=== PATIENT | male | born 1985 | race Caucasian/White ===

== ENCOUNTER 2022-08-28 06:15 | Inpatient (IN) | payer OTHER ==
[~2022-08-28] VITALS: Ht 182.9 cm; Wt 115.5 kg
[2022-08-28] VITALS (21 sets, daily range): BP systolic 100–155; BP diastolic 57–88
[2022-08-28 06:33] LABS: BASOPHILS ABSOLUTE AUTO 0.05 K/mm3 (0.00-0.23); BASOPHILS PERCENT AUTO 1 % (0-2); EOSINOPHILS ABSOLUTE AUTO 0.03 K/mm3 (0.00-0.68); EOSINOPHILS PERCENT AUTO 0 % (0-6); Hematocrit 50.7 % (37.0-53.0); Hemoglobin 15.7 g/dL (13.5-17.5); IMMATURE GRAN ABSOLUTE AUTO 0.25 K/mm3 (0.00-0.10); IMMATURE GRAN PERCENT AUTO 2 % (0-1); LYMPHOCYTES ABSOLUTE AUTO 3.28 K/mm3 (0.84-5.20); LYMPHOCYTES PERCENT AUTO 32 % (21-46); MONOCYTES ABSOLUTE AUTO 0.51 K/mm3 (0.16-1.47); MONOCYTES PERCENT AUTO 5 % (4-13); Mean Corpuscular HGB 31.2 pg (26.0-34.0); Mean Corpuscular Volume 101 fL (80-100); Mean Platelet Volume 10.5 fL (9.1-12.4); NEUTROPHILS ABSOLUTE AUTO 6.16 K/mm3 (1.96-9.15); NEUTROPHILS PERCENT AUTO 60 % (41-73); Platelet Count 367 K/mm3 (150-400); RDW Coefficient Variation 12.6 % (11.7-14.2); RDW Standard Deviation 47.4 fL (35.1-46.3); Red Blood Cell Count 5.03 M/mm3 (4.30-5.90); White Blood Cell Count 10.28 K/mm3 (4.00-11.30)
[2022-08-28 06:35] LABS: Base Excess Venous -21.1 mmol/L; PCO2 Venous 93.5 mmHg (38-42)
[2022-08-28 06:36] LABS: pH Blood Venous <6.80 (7.34-7.37)
[2022-08-28 07:04] LABS: Ethanol (Alcohol), Blood, Med <3 mg/dL; Magnesium, Blood 4.3 mg/dL (1.6-2.4)
[2022-08-28 07:07] LABS: Albumin, Blood 3.9 g/dL (3.4-5.0); Albumin/Globulin Ratio 1.1 (0.8-1.8); Bilirubin, Total 0.4 mg/dL (0.1-1.0); Bun/Creatinine Ratio 11.3 (12.0-20.0); Calcium, Blood 9.7 mg/dL (8.5-10.1); Creatinine, Blood 1.41 mg/dL (0.60-1.20); Globulin, Blood 3.6 g/dL (2.2-4.0); Potassium, Blood 4.8 mmol/L (3.5-5.5); Total Protein, Blood 7.5 g/dL (6.4-8.2)
[2022-08-28 07:22] LABS: U Amphetamine Screen Not Detected; U Barbituate Screen Not Detected; U Benzodiazapine Screen Not Detected; U Buprenorphine Screen Not Detected; U Cannabinoids Screen Not Detected; U Cocaine Screen Not Detected; U Methadone Screen Not Detected; U Methamphetamine Screen Not Detected; U Opiates Screen Not Detected; U Oxycodone Screen Not Detected; U Phencyclidine Screen Not Detected; U Propoxyphene Screen Not Detected
[2022-08-28 09:11] LABS: PCO2 Arterial 46.7 mmHg (35-45); PO2 Arterial 68.5 mmHg (80-100); pH Blood Arterial 7.27 (7.35-7.45)
--- NOTE | 2022-08-28 12:55 | NUR ---
PT ADMITTED TO ICU AT 0940 FROM ER FOR RESP ARREST. PT ARRIVED ON [facility] VENT W RN/RT ESCORT. UPON ARRIVAL PT THRASHING IN BED AND BUCKING VENT, DID NOT OPEN EYES OR FOLLOW COMMANDS. PROPOFOL INITIALLY AT 50MCG AND TITRATED UP TEMP. TO 70MCG. DR GALICIA AT BEDSIDE. ATIVAN AND FENT ORDERED PRN, ATIVAN 2MG GIVEN, FOLLOWED BY FENT 50MCG. PROPOFOL THEN TITRATED DOWN BETWEEN 35-45MCG. PT WILL OCC AWAKEN, PULL ON RESTRAINTS, GAG/COUGH (DISCONNECTING SELF FROM ETT OCC), AND STACK ON VENT. FENT AND ATIVAN NEEDED PRN FOR THESE REASONS. PT DID NOD HEAD TO DIRECTIONS ONCE AND OPENED EYES SPONT X2, BUT UNABLE TO FOLLOW OTHER COMMANDS, NOT REDIRECTABLE. LUNGS INITIALLY CLEAR, AND REMAIN CLEAR. SATS >90% ON 80% FIO2. VENT: AC/VC 26/400/80%/5. ETT 27 AT LIP, RETAPED BY RT AFTER ADMIT. BITE/OPEN AREA NOTED TO BOTTOM LIP; SMALL OOZ. 1L NS BOLUS GIVEN. PT'S AT BEDSIDE, AND WAS UPDATED BY DR GALICIA. POWERGLIDE PLACED TO AMINA.
[2022-08-28 12:56] LABS: Bun/Creatinine Ratio 12.1 (12.0-20.0); Creatinine, Blood 1.32 mg/dL (0.60-1.20); Potassium, Blood 4.5 mmol/L (3.5-5.5)
[2022-08-28 12:57] LABS: Calcium, Blood 7.6 mg/dL (8.5-10.1)
[2022-08-28 16:29] LABS: Bun/Creatinine Ratio 12.5 (12.0-20.0); Calcium, Blood 7.8 mg/dL (8.5-10.1); Creatinine, Blood 1.28 mg/dL (0.60-1.20)
[2022-08-28] MEDS ORDERED: Deltasone 10 mg10 MG (16:42)
[2022-08-28] MEDS ORDERED: ALBU90OI INH (16:43)
[2022-08-28] MEDS ORDERED: ATROVENT HFA12.9 GM INH (16:44)
[2022-08-28] MEDS ORDERED: MIRTAZAPINE7.5 M1 PO (16:45)
[2022-08-28] MEDS ORDERED: FLUT1DIS2 INH (16:45)
[2022-08-28] MEDS ORDERED: MONT10T PO (16:45)
[2022-08-28] MEDS ORDERED: OMEP20ER PO (16:46)
--- NOTE | 2022-08-28 18:12 | NUR ---
FIO2 AT 75%, PEEP WAS INCREASED FROM 5 TO [address] GALICIA. PROPOFOL AT 65MCG. PT AWAKENS EVERY 1 TO 2 HOURS, THRASHING, COUGHING/GAGING, STACKING ON VENT, PULLING ON RESTRAINTS, AND HAS REQUIRED FENT/ATIVAN FREQUENTLY T/O SHIFT FOR THESE REASONS. PT'S CAME BY AT END OF SHIFT AND WAS UPDATED BY DR GALICIA.
--- NOTE | 2022-08-28 19:06 | NUR ---
DR GALICIA INCREASED PEEP TO 12, AND DECREASED FIO2 TO 70%. BEDSIDE REPORT GIVEN TO WALESKA AN.
--- NOTE | 2022-08-28 19:48 | NUR ---
ASSUMED CARE PT IS INTUBATED AND SEDATED. VENT SETTINGS AT 20/400/12/70%; SPO2 >92%. MAP >65; ST 100'S. PROPOFOL @ 65 MCG/KG/MIN. PT IS STILL ABLE TO OPEN EYES, BUT DOES NOT APPEAR TO FOLLOW COMMANDS. WILL PULL AT RESTRAINTS AND ATTEMPT TO OPEN EYES WHEN STATING PT'S NAME. PULLIAM CATHETER PATENT AND DRAINING TO GRAVITY.
[2022-08-28 21:09] LABS: Bun/Creatinine Ratio 13.3 (12.0-20.0); Calcium, Blood 7.9 mg/dL (8.5-10.1); Creatinine, Blood 1.28 mg/dL (0.60-1.20); Potassium, Blood 4.8 mmol/L (3.5-5.5)
--- NOTE | 2022-08-28 21:58 | NUR ---
UPDATE NO IGINITION SOURCES FOUND ON PT. WAS NOT ABLE TO ASK PT D/T PT BEING INTUBATED AND SEDATED.
[2022-08-29] VITALS (17 sets, daily range): BP systolic 112–155; BP diastolic 60–85
[2022-08-29 03:28] LABS: BASOPHILS ABSOLUTE AUTO 0.02 K/mm3 (0.00-0.23); BASOPHILS PERCENT AUTO 0 % (0-2); EOSINOPHILS PERCENT AUTO 0 % (0-6); Hematocrit 39.1 % (37.0-53.0); Hemoglobin 13.2 g/dL (13.5-17.5); IMMATURE GRAN ABSOLUTE AUTO 0.11 K/mm3 (0.00-0.10); IMMATURE GRAN PERCENT AUTO 1 % (0-1); LYMPHOCYTES ABSOLUTE AUTO 0.49 K/mm3 (0.84-5.20); LYMPHOCYTES PERCENT AUTO 3 % (21-46); MONOCYTES ABSOLUTE AUTO 0.49 K/mm3 (0.16-1.47); MONOCYTES PERCENT AUTO 3 % (4-13); Mean Corpuscular HGB 31.7 pg (26.0-34.0); Mean Corpuscular HGB Conc 33.8 g/dL (31.5-36.5); Mean Platelet Volume 9.8 fL (9.1-12.4); NEUTROPHILS ABSOLUTE AUTO 16.42 K/mm3 (1.96-9.15); NEUTROPHILS PERCENT AUTO 94 % (41-73); Platelet Count 249 K/mm3 (150-400); RDW Coefficient Variation 13.2 % (11.7-14.2); RDW Standard Deviation 45.7 fL (35.1-46.3); Red Blood Cell Count 4.17 M/mm3 (4.30-5.90); White Blood Cell Count 17.53 K/mm3 (4.00-11.30)
[2022-08-29 03:37] LABS: Mean Corpuscular Volume 94 fL (80-100)
--- NOTE | 2022-08-29 03:53 | NUR ---
UPDATE AROUND 0250~ PT DESATTED DOWN TO 85% AND BECAME DESYNCHRONOUS W/ VENT AND TACHYPNEIC (TIP PRINTER IN ROOM); AUSCULTATED WHEEZES BILATERALLY AND ROSS RT CALLED. RT GAVE DUONEB/ALBUTEROL AND DR. GALICIA WAS CALLED W/ ORDERS FOR FENTANYL DEPENDENCY CASE MANAGER AND ADDITIONAL ALBUTEROL DOSE. PT IS NOW TOLERATING VENT W/ LUNGS CLEAR BILATERALLY.
[2022-08-29 03:55] LABS: Albumin, Blood 3.3 g/dL (3.4-5.0); Albumin/Globulin Ratio 1.1 (0.8-1.8); Bilirubin, Total 0.4 mg/dL (0.1-1.0); Bun/Creatinine Ratio 14.7 (12.0-20.0); Calcium, Blood 8.2 mg/dL (8.5-10.1); Creatinine, Blood 1.16 mg/dL (0.60-1.20); Globulin, Blood 2.9 g/dL (2.2-4.0); Magnesium, Blood 2.5 mg/dL (1.6-2.4); Phosphorus, Blood 3.6 mg/dL (2.5-4.9); Potassium, Blood 5.1 mmol/L (3.5-5.5); Total Protein, Blood 6.2 g/dL (6.4-8.2)
[2022-08-29 04:10] LABS: Base Excess Venous -2.3 mmol/L; Bicarbonate Venous 22.4 mmol/L (24.0-30.0); PCO2 Venous 43.8 mmHg (38-42); pH Blood Venous 7.34 (7.34-7.37)
--- NOTE | 2022-08-29 05:35 | NUR ---
SHIFT SUMMARY PT'S SETTINGS ARE NOW AT 20/400/12/75%; SPO2 >92%. MAP >65; HR 100'S. PT SEDATED W/ PROPOFOL AND FENTANYL (SEE FLOWSHEET); PT HAS BEEN RESTING QUIETLY SINCE FENTANYL GTT INITIATION. PULLIAM CATHETER PATENT AND DRAINING TO GRAVITY. NO NEW EVENTS SINCE LAST PT NOTE.
--- NOTE | 2022-08-29 07:16 | NUR ---
ASSUMED CARE I ASSUMED CARE OF THIS PATIENT AT 0700. PATIENT IS LYING IN BED INTUBATED AND SEDATED. VENT SETTINGS 20/400/12/60% WITH TV 400'S RR 20-21 AND SPO2 97-98%. OGT IN PLACE TO LOW INTERMITTENT SUCTION. MONITOR SHOWS SINUS RHYTHM WITH RATE 90'S. BP STABLE WITH MAPS GREATER THAN 65 AND SBP GREATER THAN 120. PULLIAM CATHETER PATENT AND DRAINING YELLOW CLEAR URINE TO GRAVITY. RECTAL TEMP PROBE IN PLACE WITH CORE TEMP 98.1F AT THIS TIME. NO FAMILY OR VISITORS AT BEDSIDE AND NO BELONGINGS IN ROOM. PROPOFOL @ 65 MCG/KG/MIN, FENTANYL GTT @ 25 MCG/HR, NS @ 75ML/HR AND NS TKO INF. BEDSIDE REPORT RECEIVED FROM JUVE GALEANO.
--- NOTE | 2022-08-29 11:21 | NUR ---
"Spriritual Care | Nurse request Pt. is both intubated and agitated when I arrive. This retail manager in training is directed to the highly emotional Mother of the Pt. Facilitate a life review and establish some rapport with Mother, Pts. Spouse, and Pts. father. After the staff clears out of the room i took the mother to bedside and prayed for Pt. and Mother. Mother displayed evidence of rweduced anxiety and verbalized that she could not stay. Before departing the Mother verbalized gratitude for the spiritual care visit. I walked out of ICU with family. Pts. spouse welcomed me to remain available to the family."
--- NOTE | 2022-08-29 19:32 | NUR ---
ASSUMED CARE PATIENT REMAINS INTUBATED AND SEDATED. PROPOFOL @ 50MCG/KG/MIN, PRECEDEX @ 0.5MCG/KG/HR, NS @ 75ML/HR. VHP STARTED @ GR OF 15ML/HR. PULLIAM DRAINED 800ML PENG URINE WITH SEDIMENT AFTER REQUIRING FLUSHING. VENT SETTINGS 16/500/8/45% FIO2 WITH SPO2 HIGH 90'S-100%. FOLLOWING COMMANDS TO REEL ASSEMBLER HANDS AND LIFT HEAD. AFEBRILE CORE TEMP. LUNG SOUNDS REMAIN CLEAR WITH MINIMAL ETT SECRETIONS. NO BM THIS SHIFT AND HYPOACTIVE BT. NO OTHER CHANGES DURING SHIFT.
--- NOTE | 2022-08-29 20:00 | NUR ---
ASSUMED CARE OF PT AT 1900. REPORT RECEIVED AT BEDSIDE. PT PRESENTS IN BED. INTUBATED. MAINTAINS O2 SATURATION > 90 PERCENT. PT DOES AROUSE TO PAINFUL AND TACTILE STIMULI. PROPOFOL ON AT 55 MCG'S/KG/MIN. PRECEDEX AT 0.5 MCG'S/KG/HOUR. PT DEMONSTRATING GOOD TOLERANCE TO VENT. WILL REVIEW CHART AND PLAN OF CARE FOR THIS PT.
[2022-08-29 22:09] LABS: HEMOGLOBIN A1C 5.8 % (4.8-5.6)
[2022-08-30] VITALS (27 sets, daily range): BP systolic 132–189; BP diastolic 77–132
--- NOTE | 2022-08-30 | NUR ---
HAVE BROUGHT PROPOFOL DOWN TO 45 MCG'S/KG/MIN. PT MUCH MORE AROUSABLE WITH THIS RATE. HAS ADEQUATE URINE OUTPUT FROM PULLIAM. NO S/S BLOCKAGE.
[2022-08-30 04:43] LABS: BASOPHILS ABSOLUTE AUTO 0.01 K/mm3 (0.00-0.23); BASOPHILS PERCENT AUTO 0 % (0-2); EOSINOPHILS PERCENT AUTO 0 % (0-6); Hematocrit 37.3 % (37.0-53.0); Hemoglobin 12.4 g/dL (13.5-17.5); IMMATURE GRAN ABSOLUTE AUTO 0.07 K/mm3 (0.00-0.10); IMMATURE GRAN PERCENT AUTO 0 % (0-1); LYMPHOCYTES ABSOLUTE AUTO 0.33 K/mm3 (0.84-5.20); LYMPHOCYTES PERCENT AUTO 2 % (21-46); MONOCYTES PERCENT AUTO 5 % (4-13); Mean Corpuscular HGB 31.5 pg (26.0-34.0); Mean Corpuscular HGB Conc 33.2 g/dL (31.5-36.5); Mean Corpuscular Volume 95 fL (80-100); NEUTROPHILS ABSOLUTE AUTO 16.73 K/mm3 (1.96-9.15); NEUTROPHILS PERCENT AUTO 93 % (41-73); NRBC ABSOLUTE 0.02 K/mm3 (0.00-0.02); NRBC Auto 0.1 /100 WBC (0.0-0.2); Platelet Count 246 K/mm3 (150-400); RDW Coefficient Variation 13.2 % (11.7-14.2); RDW Standard Deviation 46.4 fL (35.1-46.3); Red Blood Cell Count 3.94 M/mm3 (4.30-5.90); White Blood Cell Count 17.94 K/mm3 (4.00-11.30)
[2022-08-30 05:00] LABS: Bun/Creatinine Ratio 17.7 (12.0-20.0); Calcium, Blood 8.6 mg/dL (8.5-10.1); Creatinine, Blood 0.91 mg/dL (0.60-1.20); Magnesium, Blood 2.3 mg/dL (1.6-2.4); Phosphorus, Blood 1.6 mg/dL (2.5-4.9); Potassium, Blood 4.8 mmol/L (3.5-5.5)
--- NOTE | 2022-08-30 06:30 | NUR ---
HAVE STOPPED TUBE FEEDING AT 0500 THIS AM PER MD ORDERS. DR ARREAGA GIVE VERBAL ORDER TO EXTUBATE PT. HAVE BROUGHT SEDATION WITH PROPOFOL TO OFF. PT ABLE TO AWAKEN AND FOLLOW COMMANDS. ORION, RT IN ROOM SUCCESSFULLY EXTUBATES PT AFTER ASCERTAINING LEAK PER LEAK TEST. HAVE LEFT PRECEDEX DRIP AT 0.5 MCG'S. WILL CONTINUE TO MONITOR PT, AND WILL REPORT OFF TO ONCOMING RN.
--- NOTE | 2022-08-30 08:30 | NUR ---
INITIAL ASSESSMENT PATIENT EXTUBATED EARLY THIS AM BEFORE THIS RN CAME ON SHIFT. PATIENT ORIENTED TO SELF AND FAMILY. PATIENT CONTINUES TO NEED REMINDED OF EVENT AND PLACE. PATIENT ANXIOUS AND IRRITABLE AT TIMES. PATIENT TEMP 99.8 DEGREES FAHRENHEIT. PATIENT SATTING 90% AND GREATER ON 4 L NC. OCCASIONAL COUGH NOTED. LUNGS CLEAR IN UPPER LOBES AND DIM IN LOWER LOBES. PATIENT IN SR TO ST, HR 90S TO LOW 100S. SBP IN THE 140S. ABD MODERATELY DISTENDED. PULLIAM DRAINING YELLOW COLORED URINE. ABRASION NOTED TO BOTTOM LIP. NS INFUSING AT 75 MLS/ HOUR. PRECEDEX PLACED ON SB. BED LOW, CALL LIGHT IN REACH. WILL CONTINUE TO MONITOR PATIENT FREQUENTLY THROUGHOUT SHIFT.
--- NOTE | 2022-08-30 09:00 | NUR ---
IGNITION RISK ASSESSED. PATIENT STATES HE UNDERSTAND RISK OF FIRE IN HOSPITAL AND WILL NOT ATTEMPT TO SMOKE IN HOSPITAL ROOM.
--- NOTE | 2022-08-30 12:00 | NUR ---
PATIENT HAS TEMP FO 100.0 DEGREES FAHRENHEIT. HR IN THE LOW 100S. SBP IN THE 140S. MENTATION IMPROVED FROM THIS AM. PATIENT ALERT AND ORIENTED X 4. PRECEDEX HAS REMAINED OFF SINCE TURNED OFF THIS AM. PATIENT PASSED SWALLOW EVAL THIS AM AND IS TOLERATING FOOD WELL.
--- NOTE | 2022-08-30 15:36 | NUR ---
SHIFT SUMMARY PATIENT ON LOW DOSE PRECEDEX THIS AM AFTER EXTUBATED. PATIENT CONFUSED WHEN FIRST STARTED SHIFT BUT SINCE PRECEDEX PLACED ON SB THIS AM PATIENT HAS BECOME ALERT AND ORIENTED X 4. PATIENT HAS BEEN COOPERATIVE BUT DOES BECOME ANXIOUS AND IRRITABLE AT TIMES. PATIENT RECEIVED PRN FENTANYL TWICE THIS SHIFT FOR COMPLAINTS OF CHEST PAIN FROM CPR AND THROAT PAIN. PATIENT HAD CORE TMAX OF 100.0 DEGREES FAHRENHEIT THIS SHIFT. PATIENT HAS REMAINED SATTING 90% AND GREATER ON 4 L NC. PATIENT HAS OCCASIONAL, STRONG COUGH. LUNGS REMAINED CLEAR, LOWER LOBES SLIGHTLY DIMINISHED. PATIENT HAS REMAINED SR TO ST, HR 90S TO LOW 100S. SBP 140S TO 160S. PATIENT INCREASED TO REGULAR DIET THIS SHIFT AND HAS BEEN TOLERATING WELL. NO BM THIS SHIFT. ADEQUATE URINE OUTPUT THIS SHIFT. PULLIAM REMOVED THIS SHIFT AND PATIENT HAS SINCE VOIDED. NO CHANGES TO SKIN NOTED. NS DC'D. PRECEDEX DC'D. ASA AND OTHER FAMILY HAS BEEN IN MOST OF THE DAY. PATIENT WILL BE TRANSFERRING TO PCU SHORTLY.
--- NOTE | 2022-08-30 15:45 | NUR ---
PATIENT SUCCESSFULLY TRANSFERRED TO PCU, ROOM 05. FOLLOWED AND HAS ALL PATIENT BELONGINGS.
--- NOTE | 2022-08-30 15:50 | NUR ---
TRANSFER: Pt arrived to PCU in wheelchair on 4L O2 NC. He is A/O x 4, GARCIA. SO at bedside.
--- NOTE | 2022-08-30 18:20 | NUR ---
SHIFT SUMMARY: Pt A/O x 4 on 4L NC. He reports chest pain from CPR which he received PRN fentanyl with good effect. SO at bedside and supportive.
--- NOTE | 2022-08-30 21:36 | NUR ---
ASSUMPTION OF CARE: PATIENT IS ALERT AND ORIENTED, DIFFICULTY RECALLING SOME EVENTS, HOWERVER, AT BEDSIDE WITH GREAT KNOWLEDGE OF EVENTS. PATIENT IS PLEASANT COOPERATIVE WITH CARE TOUR SALES REPRESENTATIVE DC'D MEDS FOR PAIN AND ANXIETY, CALL PLACED TO PROVIDER, AWAITING CALL BACK, PATIENT HAS BEEN PAINFUL MUSCLE SKELETAL CPR RELATED CHEST PAIN, NO CHANGE FROM PREVIOUS. PATIENT IS CURRENLTY ON 6-6.5L VIA NC SPO2 >89%, WILL CONTINEU TO MONITOR. PATIENT IS SLIGHTLY HYPERTENSIVE, 160'S SYS, HOWEVER, WAS PAINFUL ON START OF VITALS. PATIENT EDUCATED, ON CURRENT ILNESS, MEDICATIONS, ANTICOAGULATION. OF CONCERN PATIENT IS MILDLY ALMOST FEBRILE AT 99.1, AND ST AT 111. WILL CONTINUE TO MONITOR, PATIENT IS RECIEVING IV ABX AND ORAL INTAKE IS WELL DESPITE EXTUBATION THIS AM. NO CONCERNS FROM THIS RN AT THIS TIME, PATIENT VOIDED AT BEGINNING OF SHIFT WILL CONTINUE TO MONITOR HE HAD A PULLIAM PREVIOUSLY.
[2022-08-31] VITALS (7 sets, daily range): BP systolic 128–160; BP diastolic 75–97
--- NOTE | 2022-08-31 04:00 | NUR ---
EOS: PATIENT HAS BEEN SLEEPING WELL THOUGH THE NIGHT, PAIN CONTROLLED WELL WITH OXY 5 AND TYLENOL, RECOMMEND STAGGERING, HEART RATE NOW SINUS RHYTHM 80-90'S VERSUS 100'S STILL ON 6L MOST LIKELY WILL BE ABLE TO WEANED DOWN DURING THE DAY HE HAS OBVIOUS SIGNS OF SLEEP APNEA, WILL CONTINUE TO MONITOR, AM LABS SENT, STILL SLIGHTLY HYPERTENSIVE SYS 160. PATIENT IS MILDLY CLAMMY DENIES CHEST APIN PRESSURE OR INCREASED WOB, WILL MONITOR UNTIL SHIFT CHANGE.
[2022-08-31 04:20] LABS: Calcium, Blood 8.4 mg/dL (8.5-10.1); Creatinine, Blood 0.96 mg/dL (0.60-1.20); Magnesium, Blood 2.2 mg/dL (1.6-2.4); Phosphorus, Blood 4.5 mg/dL (2.5-4.9); Potassium, Blood 4.3 mmol/L (3.5-5.5)
--- NOTE | 2022-08-31 17:50 | NUR ---
TRANSFER NOTE/SHIFT SUMMARY PT RECEIVED FROM PCU, REPORT FROM JUVE WILLIAMSON. PT ORIENTED TO THE ROOM. IS AT THE BS. CALL LIGHT WITHIN REACH, BED IN THE LOWEST POSITION. FIRE PROTOCOLS AND PROCEDURES DISCUSSED WITH THE PT AND FAMILY. ALL VERBALIZED UNDERSTANDING.
--- NOTE | 2022-08-31 18:38 | NUR ---
Shift Summary Pt alert, oriented X4; calm and cooperative with care. Pt resting in bed, up sba in room. Pt reports chest pain, medicated per orders. Pt denies sob, nauses, dizziness and numb/tingling. Tele sinus 80-90's, bp stable. Spo2 >90% t/o shift, pt on 6l o2 via nc this am, titrated down to 3l o2 via nc. Other vss. No other acute changes noted. Pt transfered to [place] [id number] this evening. Pt and family educated on ignition sources and risk of injury while wearing oxygen, pt denies having ignition sources at this time. Pt and family verbalize understanding.
--- NOTE | 2022-09-01 00:11 | NUR ---
PATIENT AND BOTH CONCERNED ABOUT MISSING THE CT THAT HAD BEEN ORDERED FOR HIS UPCOMING NASAL POLYPECTOMY. HE WAS SCHEDULED TO HAVE IT COMPLETED HERE ON THE DAY HE CAME IN THROUGH THE ER. HIS SURGERY IS SCHEDULED FOR THE September AT [facility] IN [place]. HOWEVER ARRANGEMENTS HAD BEEN MADE FOR DEBORAH TO HAVE THE CT HERE AT [facility].
--- NOTE | 2022-09-01 04:50 | NUR ---
PATIENT SLEPT WELL OVERNIGHT. COMPLAINTS OF LOWER STERNAL PAIN MANAGED WELL WITH PERCOCET. PATIENT IS ALERT AND ORIENTED AND CALLING APPROPRIATELY FOR ASSIST WHEN NEEDED. SPOUSE HAS BEEN BY HIS SIDE THROUGHOUT THE NIGHT DEBORAH AND WERE CONCERNED ABOUT MISSING HIS CT SCAN FOR HIS UPCOMING NASAL POLYPECTOMY SURGERY. ASSURED PATIENT THAT SINCE IT WAS ORDERED THROUGH [facility] FOR THE DAY HE CAME THROUGH THE ER, HE COULD LIKELY HAVE IT COMPLETED WHILE HE IS HERE IN THE HOSPITAAL.
[2022-09-01 05:50] VITALS: BP 135/85
[2022-09-01 06:19] LABS: BASOPHILS ABSOLUTE AUTO 0.02 K/mm3 (0.00-0.23); BASOPHILS PERCENT AUTO 0 % (0-2); EOSINOPHILS ABSOLUTE AUTO 0.02 K/mm3 (0.00-0.68); EOSINOPHILS PERCENT AUTO 0 % (0-6); Hemoglobin 14.5 g/dL (13.5-17.5); IMMATURE GRAN ABSOLUTE AUTO 0.12 K/mm3 (0.00-0.10); IMMATURE GRAN PERCENT AUTO 1 % (0-1); LYMPHOCYTES ABSOLUTE AUTO 1.07 K/mm3 (0.84-5.20); LYMPHOCYTES PERCENT AUTO 8 % (21-46); MONOCYTES ABSOLUTE AUTO 1.07 K/mm3 (0.16-1.47); MONOCYTES PERCENT AUTO 8 % (4-13); Mean Corpuscular HGB 31.1 pg (26.0-34.0); Mean Corpuscular HGB Conc 33.7 g/dL (31.5-36.5); Mean Corpuscular Volume 92 fL (80-100); Mean Platelet Volume 9.9 fL (9.1-12.4); NEUTROPHILS ABSOLUTE AUTO 11.85 K/mm3 (1.96-9.15); NEUTROPHILS PERCENT AUTO 84 % (41-73); Platelet Count 273 K/mm3 (150-400); RDW Coefficient Variation 13.1 % (11.7-14.2); RDW Standard Deviation 44.6 fL (35.1-46.3); Red Blood Cell Count 4.66 M/mm3 (4.30-5.90); White Blood Cell Count 14.15 K/mm3 (4.00-11.30)
[2022-09-01 06:37] LABS: Albumin, Blood 3.2 g/dL (3.4-5.0); Anion Gap 5 mmol/L (6-16); Blood Urea Nitrogen 23 mg/dL (8-24); Bun/Creatinine Ratio 26.8 (12.0-20.0); CO2, Blood 29 mmol/L (21-32); Calcium, Blood 8.9 mg/dL (8.5-10.1); Chloride, Blood 104 mmol/L (98-108); Creatinine, Blood 0.86 mg/dL (0.60-1.20); Glomerular Filtration Rate 114 (60-); Glucose, Blood 149 mg/dL (70-99); Magnesium, Blood 2.4 mg/dL (1.6-2.4); Phosphorus, Blood 4.6 mg/dL (2.5-4.9); Potassium, Blood 4.8 mmol/L (3.5-5.5); Sodium, Blood 138 mmol/L (136-145)
[2022-09-01 07:06] VITALS: BP 128/78
[2022-09-01] MEDS ORDERED: MIRALAX17 GM PO (11:52)
[2022-09-01] MEDS ORDERED: APHEN325 M1 PO (11:52)
[2022-09-01] MEDS ORDERED: VISBIOME 112.51 EACH PO (11:53)
[2022-09-01] MEDS ORDERED: AMOCLA875 PO (11:53)
[2022-09-01] MEDS ORDERED: Prednisone10 MG PO ×2 (11:55→12:07)
[2022-09-01] MEDS ORDERED: TRAM50 PO (12:09)
--- NOTE | 2022-09-01 15:25 | NUR ---
DISCHARGE NOTE PT DISCHARGED TO HOME, TRANSPORTED HOME BY HIS . TAKE TO THEIR VEHICLE BY THIS RN VIA WHEELCHAIR. POWERGLIDE REMOVED SUCCESSFULLY. MEDICATIONS FAXED TO THE PHARMACY OF HIS CHOICE. DISCHARGE INFORMATION AND EDUCATION PROVIDED. FIRE SAFETY MAINTAINED, PROTOCOLS IN PLACE DURING STAY. PT AND VERBALIZED UNDERSTANDING.
== END 2022-09-01 14:46 | disposition home or self-care (01) | DRG 208 ==
LOC: EDBD 06:15 → ER 06:15 → ICUE 08:06 → PCU 08-30 15:56 → MEDS 08-31 17:42 → ENPENDDIS 09-01 10:31 → MEDS 09-01 14:46
PROVIDERS: Emergency Medicine; Internal Medicine Critical Care Medicine; Student in an Organized Health Care Education/Training Program; ADMIT Family Medicine
PROC: 5A1945Z Respiratory Ventilation, 24-96 Consecutive Hours (ICD-10-PCS; principal; 2022-08-28)
PROC: 0BH17EZ Insertion of Endotracheal Airway into Trachea, Via Natural or Artificial Opening (ICD-10-PCS; 2022-08-28)
PROC: 0T9B70Z Drainage of Bladder with Drainage Device, Via Natural or Artificial Opening (ICD-10-PCS; 2022-08-28)
PROC: 0DH67UZ Insertion of Feeding Device into Stomach, Via Natural or Artificial Opening (ICD-10-PCS; 2022-08-28)
PROC: 4A033R1 Measurement of Arterial Saturation, Peripheral, Percutaneous Approach (ICD-10-PCS; 2022-08-28)
PROC: 3E033XZ Introduction of Vasopressor into Peripheral Vein, Percutaneous Approach (ICD-10-PCS; 2022-08-28)
DX: J96.01 Acute respiratory failure with hypoxia (principal); E11.10 Type 2 diabetes mellitus with ketoacidosis without coma; I46.8 Cardiac arrest due to other underlying condition; J18.9 Pneumonia, unspecified organism; J82.83 Eosinophilic asthma; N17.9 Acute kidney failure, unspecified; J44.1 Chronic obstructive pulmonary disease with (acute) exacerbation; E87.4 Mixed disorder of acid-base balance; J98.11 Atelectasis; R65.10 Systemic inflammatory response syndrome (SIRS) of non-infectious origin without acute organ dysfunction; J45.902 Unspecified asthma with status asthmaticus; D64.9 Anemia, unspecified; D72.829 Elevated white blood cell count, unspecified; J96.02 Acute respiratory failure with hypercapnia; F17.210 Nicotine dependence, cigarettes, uncomplicated; E66.3 Overweight; N28.9 Disorder of kidney and ureter, unspecified; E83.39 Other disorders of phosphorus metabolism; F41.9 Anxiety disorder, unspecified; J33.9 Nasal polyp, unspecified; E11.65 Type 2 diabetes mellitus with hyperglycemia; K21.9 Gastro-esophageal reflux disease without esophagitis; Z98.890 Other specified postprocedural states; Z87.81 Personal history of (healed) traumatic fracture; Z88.8 Allergy status to other drugs, medicaments and biological substances; Z68.33 Body mass index [BMI] 33.0-33.9, adult; Z99.81 Dependence on supplemental oxygen
CPT/HCPCS: 31500; 31720; 36415; 36600; 51702; 70486; 71045; 71260; 80048; 80053; 80069; 82803; 82947; 83036; 83605; 83735; 84100; 84145; 84484; 85025; 87040; 87070; 87205; 93005; 93010; 94002; 94003; 94640; 94645; 94664; 94760; 94761; 94762; 96361-59; 96374-59; 99291-25; A9270; C1751; C9113; G0480; J0330; J0456; J0696; J1650; J1815; J2060; J2704; J2920; J2930; J3010; J7030; J7050; J7060; Q9967